=== PATIENT | female | born 1980 | race Caucasian/White ===

== ENCOUNTER 2017-09-03 23:34 | Emergency (ER) | payer OTHER ==
[2017-09-04] MEDS ORDERED: Diltiazem CD CAP* 120 MG PO ONE
[2017-09-04 00:30] LABS: ABS Basophils 0.1 10^3/ul (0-0.2); ABS Eosinophils 0.1 10^3/ul (0-0.6); ABS Lymphocytes 1.9 10^3/ul (1.0-4.8); ABS Monocytes 0.4 10^3/ul (0-0.8); ABS Neutrophils 5.7 10^3/ul (1.5-7.7); ABS Nucleated RBC 0 10^3/ul; Eosinophil % 1.2 % (0-6); Hematocrit 40 % (35-47); Hemoglobin 13.8 g/dl (12.0-16.0); Lymphocyte % 23.2 % (25-47); Mean Corpuscular HGB Conc 34 g/dl (31-36); Mean Corpuscular Hemoglobin 31 pg (27-31); Mean Corpuscular Volume 90 fL (80-97); Mean Platelet Volume 8 um3 (7.4-10.4); Nucleated Red Blood Cells % 0; Platelet Count 241 10^3/ul (150-450); Red Blood Count 4.47 10^6/ul (4.0-5.4); Red Cell Distribution Width 14 % (10.5-15); White Blood Count 8.2 10^3/ul (3.5-10.8)
[2017-09-04 00:34] LABS: EGFR Non-African American 62.4 (>60)
[2017-09-04 00:35] LABS: INR 0.79 (0.77-1.02)
[2017-09-04] MEDS ORDERED: Iohexol 350* (CONTRAST) 500 ML MDV IV ONE (01:25)
--- NOTE | 2017-09-04 03:59 | ED ---
Simon Hubbard Jennifer, scribed for Delgado Alonso on 09/03/17 at 2348 . HPI Chest Pain - HPI Summary HPI Summary: The patient is a 36 year old female who presents to the ED with chest pain that began tonight. She has a history of SVT and says she can feel when its coming. She felt it tonight and was told her heart rate went up to 190. She reports a stabbing pain in her sternum, and the pain radiates into her back. She additionally reports feeling dizzy, lightheaded, shaky, and has a migraine. The patient explains that she normally takes Cardiazem, but she hasnt had it in three months because her ex-boyfriend threw it out. - History of Current Complaint Time Seen by Provider: 09/03/17 23:39 Hx Obtained From: Patient Onset/Duration: Started Minutes Ago, Still Present Timing: Constant Initial Severity: Mild Current Severity: Mild Pain Intensity: 2 Pain Scale Used: 0-10 Numeric Chest Pain Location: Mid Sternal Chest Pain Radiates: Yes Chest Pain Radiates To:: Back Character: Sharp/Stabbing Aggravating Factor(s): Nothing Alleviating Factor(s): Nothing Associated Signs and Symptoms: Positive: Other: - Dizzy, lightheaded, shaky, migraine Related History: Similar Episode/Dx as: - SVT - Allergy/Home Medications Allergies/Adverse Reactions: Allergies Allergy/AdvReac Type Severity Reaction Status Date / Time aspirin Allergy Anaphylatic Verified 09/03/17 23:40 Shock Penicillins Allergy Anaphylatic Verified 09/04/17 00:10 Shock PMH/Surg Hx/FS Hx/Imm Hx Endocrine/Hematology History: Denies: Hx Diabetes Cardiovascular History: Denies: Hx Hypertension, Hx Myocardial Infarction Infectious Disease History: No Infectious Disease History: Denies: Traveled Outside the [place] in Last 30 Days - Family History Known Family History: Positive: Diabetes - Grandmother - Social History Smoking Status (MU): Smoker, Current Status Unknown Review of Systems Positive: Chest Pain Neurological: Other - Dizzy, lightheaded, shaky Positive: Headache - Migraine All Other Systems Reviewed And Are Negative: Yes Physical Exam - Summary Physical Exam Summary: Appearance: Well appearing, no pain distress Skin: warm, dry, reflects adequate perfusion Head/face: normal Eyes: EOMI, JOSE A ENT: normal Neck: supple, non-tender Respiratory: CTA, breath sounds present Cardiovascular: tachycardic, regular rhythm, pulses symmetrical Abdomen: non-tender, soft Bowel: present Musculoskeletal: normal, strength/ROM intact Neuro: normal, sensory motor intact, A&Ox3 Triage Information Reviewed: Yes Vital Signs On Initial Exam: Initial Vitals Temp Pulse Resp BP Pulse Ox 97.4 F 103 20 140/73 96 09/03/17 23:39 09/03/17 23:39 09/03/17 23:39 09/03/17 23:39 09/03/17 23:39 Vital Signs Reviewed: Yes Diagnostics - Vital Signs Vital Signs Temp Pulse Resp BP Pulse Ox 09/03/17 23:39 97.4 F 103 20 140/73 96 - Laboratory Lab Results: Lab Results 09/04/17 09/04/17 09/04/17 Range/Units 00:05 00:05 00:05 WBC (3.5-10.8) 10^3/ul RBC (4.0-5.4) 10^6/ul Hgb (12.0-16.0) g/dl Hct (35-47) % MCV (80-97) fL MCH (27-31) pg MCHC (31-36) g/dl RDW (10.5-15) % Plt Count (150-450) 10^3/ul MPV (7.4-10.4) um3 Neut % (Auto) (38-83) % Lymph % (Auto) (25-47) % White % (Auto) (0-7) % Eos % (Auto) (0-6) % Baso % (Auto) (0-2) % Absolute Neuts (auto) (1.5-7.7) 10^3/ul Absolute Lymphs (auto) (1.0-4.8) 10^3/ul Absolute Monos (auto) (0-0.8) 10^3/ul Absolute Eos (auto) (0-0.6) 10^3/ul Absolute Basos (auto) (0-0.2) 10^3/ul Absolute Nucleated RBC 10^3/ul Nucleated RBC % INR (Anticoag Therapy) 0.79 (0.77-1.02) APTT 31.4 (26.0-36.3) seconds Sodium 138 (133-145) mmol/L Potassium 3.9 (3.5-5.0) mmol/L Chloride 106 (101-111) mmol/L Carbon Dioxide 25 (22-32) mmol/L Anion Gap 7 (2-11) mmol/L BUN 15 (6-24) mg/dL Creatinine 1.00 H (0.51-0.95) mg/dL Est GFR ( Amer) 80.2 (>60) Est GFR (Non-Af Amer) 62.4 (>60) BUN/Creatinine Ratio 15.0 (8-20) Glucose 100 (70-100) mg/dL Lactic Acid (0.5-2.0) mmol/L Calcium 9.6 (8.6-10.3) mg/dL Total Bilirubin 0.20 (0.2-1.0) mg/dL AST 20 (13-39) U/L ALT 26 (7-52) U/L Alkaline Phosphatase 62 (34-104) U/L Troponin I 0.00 (<0.04) ng/mL B-Natriuretic Peptide 15 ( - 100) pg/mL Total Protein 6.9 (6.4-8.9) g/dL Albumin 4.2 (3.2-5.2) g/dL Globulin 2.7 (2-4) g/dL Albumin/Globulin Ratio 1.6 (1-3) Beta HCG, Quant 1.19 mIU/mL 09/04/17 09/04/17 09/04/17 Range/Units 00:05 00:05 02:51 WBC 8.2 (3.5-10.8) 10^3/ul RBC 4.47 (4.0-5.4) 10^6/ul Hgb 13.8 (12.0-16.0) g/dl Hct 40 (35-47) % MCV 90 (80-97) fL MCH 31 (27-31) pg MCHC 34 (31-36) g/dl RDW 14 (10.5-15) % Plt Count 241 (150-450) 10^3/ul MPV 8 (7.4-10.4) um3 Neut % (Auto) 69.5 (38-83) % Lymph % (Auto) 23.2 L (25-47) % White % (Auto) 5.4 (0-7) % Eos % (Auto) 1.2 (0-6) % Baso % (Auto) 0.7 (0-2) % Absolute Neuts (auto) 5.7 (1.5-7.7) 10^3/ul Absolute Lymphs (auto) 1.9 (1.0-4.8) 10^3/ul Absolute Monos (auto) 0.4 (0-0.8) 10^3/ul Absolute Eos (auto) 0.1 (0-0.6) 10^3/ul Absolute Basos (auto) 0.1 (0-0.2) 10^3/ul Absolute Nucleated RBC 0 10^3/ul Nucleated RBC % 0 INR (Anticoag Therapy) (0.77-1.02) APTT (26.0-36.3) seconds Sodium (133-145) mmol/L Potassium (3.5-5.0) mmol/L Chloride (101-111) mmol/L Carbon Dioxide (22-32) mmol/L Anion Gap (2-11) mmol/L BUN (6-24) mg/dL Creatinine (0.51-0.95) mg/dL Est GFR ( Amer) (>60) Est GFR (Non-Af Amer) (>60) BUN/Creatinine Ratio (8-20) Glucose (70-100) mg/dL Lactic Acid 1.3 (0.5-2.0) mmol/L Calcium (8.6-10.3) mg/dL Total Bilirubin (0.2-1.0) mg/dL AST (13-39) U/L ALT (7-52) U/L Alkaline Phosphatase (34-104) U/L Troponin I 0.00 (<0.04) ng/mL B-Natriuretic Peptide ( - 100) pg/mL Total Protein (6.4-8.9) g/dL Albumin (3.2-5.2) g/dL Globulin (2-4) g/dL Albumin/Globulin Ratio (1-3) Beta HCG, Quant mIU/mL 09/04/17 Range/Units 03:15 WBC (3.5-10.8) 10^3/ul RBC (4.0-5.4) 10^6/ul Hgb (12.0-16.0) g/dl Hct (35-47) % MCV (80-97) fL MCH (27-31) pg MCHC (31-36) g/dl RDW (10.5-15) % Plt Count (150-450) 10^3/ul MPV (7.4-10.4) um3 Neut % (Auto) (38-83) % Lymph % (Auto) (25-47) % White % (Auto) (0-7) % Eos % (Auto) (0-6) % Baso % (Auto) (0-2) % Absolute Neuts (auto) (1.5-7.7) 10^3/ul Absolute Lymphs (auto) (1.0-4.8) 10^3/ul Absolute Monos (auto) (0-0.8) 10^3/ul Absolute Eos (auto) (0-0.6) 10^3/ul Absolute Basos (auto) (0-0.2) 10^3/ul Absolute Nucleated RBC 10^3/ul Nucleated RBC % INR (Anticoag Therapy) (0.77-1.02) APTT (26.0-36.3) seconds Sodium (133-145) mmol/L Potassium (3.5-5.0) mmol/L Chloride (101-111) mmol/L Carbon Dioxide (22-32) mmol/L Anion Gap (2-11) mmol/L BUN (6-24) mg/dL Creatinine (0.51-0.95) mg/dL Est GFR ( Amer) (>60) Est GFR (Non-Af Amer) (>60) BUN/Creatinine Ratio (8-20) Glucose (70-100) mg/dL Lactic Acid (0.5-2.0) mmol/L Calcium (8.6-10.3) mg/dL Total Bilirubin (0.2-1.0) mg/dL AST (13-39) U/L ALT (7-52) U/L Alkaline Phosphatase (34-104) U/L Troponin I 0.00 (<0.04) ng/mL B-Natriuretic Peptide ( - 100) pg/mL Total Protein (6.4-8.9) g/dL Albumin (3.2-5.2) g/dL Globulin (2-4) g/dL Albumin/Globulin Ratio (1-3) Beta HCG, Quant mIU/mL Result Diagrams: 09/04/17 00:05 09/04/17 00:05 Lab Statement: Any lab studies that have been ordered have been reviewed, and results considered in the medical decision making process. - Radiology CXR Xray Interpretation: No Acute Changes - Normal Radiology Interpretation Completed By: ED Physician - CT CTA Chest/Abd/Pel CT Interpretation: No Acute Changes - No acute pathology. Dr. Alonso has reviewed this report. CT Interpretation Completed By: Radiologist - EKG 23:32 Cardiac Rate: Tachycardia EKG Rhythm: Sinus Tachycardia - 106 BPM EKG Interpretation: no acute changes Chest Pain Course/Dx - Course Assessment/Plan: The patient is a 36 year old female who presents to the ED with chest pain that began tonight. She has a history of SVT and says she can feel when its coming. Bloodwork was obtained. CXR was obtained. EKG showed sinus tachycardia. The patient is diagnosed with Palpitations and Atypical chest pain. She is instructed to f/u with PCP in three days. - Chest Pain Differential Diagnosis/HQI/PQRI: Acute OK, CHF, Chest Wall, Lower Respiratory Infection, Pulmonary Embolism - Diagnoses Provider Diagnoses: Palpitations, Atypical chest pain Discharge - Discharge Plan Condition: Stable Disposition: HOME Prescriptions: dilTIAZem HCl [Cardizem LA] 120 mg PO ONCE #30 tab.er.24h Patient Education Materials: Chest Pain (ED), Heart Palpitations (ED) Forms: *Work Release Referrals: [facility] [place] PH[facility]IAN REFERRAL [Outside] - 3 Days Additional Instructions: Follow up with your primary care physician in three days. Return to the emergency department for any new or worsening symptoms. The documentation as recorded by the Simon moran Jennifer accurately reflects the service I personally performed and the decisions made by , Delgado Alonso.
[2017-09-04 04:02] VITALS: BP 115/62
--- NOTE | 2017-09-04 08:37 | RAD ---
Indication: Chest pain. Single frontal view of the chest performed at 2355 hours was reviewed. No prior study is available for comparison. No mediastinal shift is noted. Heart is of normal size and configuration. Lung landa appear clear. IMPRESSION: NO ACTIVE CARDIOPULMONARY DISEASE IS NOTED.
--- NOTE | 2017-09-04 09:10 | RAD ---
Indication: Aortic dissection, chest pain. Contrast: Administered 100.1 ml of OMNIPAQUE 350 mg/ml CTA of the chest, abdomen and pelvis was performed after IV contrast administration. No oral contrast was given. The thoracic aorta demonstrates no evidence of aortic dissection. No aneurysmal dilatation is noted. The pulmonary arteries are unremarkable with no definite filling defects. Small 3 to 5 mm pretracheal and AP window lymph nodes are noted. No hilar adenopathy is noted. The trachea and major bronchi appear patent. Lung landa demonstrate no pleural fluid, pneumonia or pneumothorax. The thoracic spinal structures demonstrate no evidence of compression fracture. The abdominal aorta demonstrates no evidence of aneurysmal dilatation or dissection. The origins of the celiac axis, left and right renal arteries as well as the superior mesenteric artery are patent. Common iliac and external iliac arteries are grossly unremarkable. The liver is normal in size. It is diffusely decreased in density consistent with hepatic steatosis. Areas of focal fatty sparing are noted in the medial segment of the left lobe of liver and around the gallbladder fossa. The gallbladder is contracted. The spleen is normal in size. No adrenal lesions are noted. The kidneys demonstrate symmetric nephrograms without focal lesions. No retroperitoneal lymphadenopathy is noted. No dilated loops of bowel are noted. Scattered diverticula are noted in the colon. No hernias are noted. The patient status post hysterectomy. The visualized bony structures in the abdomen and pelvis demonstrates no fracture. Lumbar spine is grossly unremarkable. IMPRESSION: No evidence of aortic dissection or aneurysmal dilatation of the thoracic or abdominal aorta. No obvious pulmonary embolus is noted. There is hepatic steatosis. No bowel obstruction is noted.
== END 2017-09-04 04:08 | disposition home or self-care (01) ==
LOC: ED 23:34
DX: R00.2 Palpitations (principal); R07.89 Other chest pain; R42 Dizziness and giddiness; G43.909 Migraine, unspecified, not intractable, without status migrainosus; I47.1 Supraventricular tachycardia; Z72.0 Tobacco use
CPT/HCPCS: 36415; 71045; 71275; 74174; 80053; 83605; 83880; 84484; 84702; 85025; 85610; 85730; 93005; 99283; A9270-GY; Q9967

== ENCOUNTER 2018-03-15 14:56 | Emergency (ER) | payer OTHER ==
--- NOTE | 2018-03-15 16:16 | ED ---
Upper Extremity Pain - HPI Summary HPI Summary: Patient complains of right arm pain and numbness and tingling radiating down to hand starting this morning. Denies trauma, heavy lifting, fever, loss of function. - History of Current Complaint Chief Complaint: EDExtremityUpper Stated Complaint: RT ARM PAIN Time Seen by Provider: 03/15/18 15:58 Hx Obtained From: Patient Mechanism Of Injury: Unknown Onset/Duration: Started Hours Ago Timing: Constant Severity Initially: Mild Severity Currently: Mild Aggravating Factor(s): Movement Alleviating Factor(s): Rest Associated Signs & Symptoms: Positive: Negative - Allergies/Home Medications Allergies/Adverse Reactions: Allergies Allergy/AdvReac Type Severity Reaction Status Date / Time aspirin Allergy Anaphylatic Verified 03/15/18 15:10 Shock Penicillins Allergy Anaphylatic Verified 03/15/18 15:10 Shock PMH/Surg Hx/FS Hx/Imm Hx Endocrine/Hematology History: Denies: Hx Anticoagulant Therapy, Hx Diabetes Cardiovascular History: Denies: Hx Hypertension, Hx Myocardial Infarction History: Denies: Hx Dialysis, Hx Renal Disease Neurological History: Denies: Hx CVA - Surgical History Surgery Procedure, Year, and Place: 2 HEART SX Infectious Disease History: No Infectious Disease History: Denies: Traveled Outside the [place] in Last 30 Days - Family History Known Family History: Positive: Diabetes - Grandmother - Social History Alcohol Use: None Substance Use Type: Reports: None Smoking Status (MU): Heavy Every Day Tobacco Smoker Review of Systems Constitutional: Negative Eyes: Negative ENT: Negative Cardiovascular: Negative Respiratory: Negative Gastrointestinal: Negative Genitourinary: Negative Musculoskeletal: Other Skin: Negative Positive: Paresthesia Psychological: Normal All Other Systems Reviewed And Are Negative: Yes Physical Exam - Summary Physical Exam Summary: No erythema, ecchymosis, wound, extra warmth, swelling or deformity noted to right upper extremity. Patient has full range of motion of right fingers, right wrist, right elbow, right shoulder without indication of pain. Tenderness to palpation of medial right upper arm. 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 Triage Information Reviewed: Yes Vital Signs On Initial Exam: Initial Vitals Temp Pulse Resp BP Pulse Ox 97.9 F 100 16 136/80 98 03/15/18 15:05 03/15/18 15:05 03/15/18 15:05 03/15/18 15:05 03/15/18 15:05 Vital Signs Reviewed: Yes Appearance: Positive: Well-Appearing Skin: Positive: Warm Head/Face: Positive: Normal Head/Face Inspection Eyes: Positive: Normal Neck: Positive: Supple Respiratory/Lung Sounds: Positive: Clear to Auscultation Cardiovascular: Positive: Normal Abdomen Description: Positive: Nontender Musculoskeletal: Positive: Normal Neurological: Positive: Normal Psychiatric: Positive: Normal AVPU Assessment: Alert - Mobile Coma Scale Best Eye Response: 4 - Spontaneous Best Motor Response: 6 - Obeys Commands Best Verbal Response: 5 - Oriented Coma Scale Total: 15 Diagnostics - Vital Signs Vital Signs Temp Pulse Resp BP Pulse Ox 03/15/18 15:05 97.9 F 100 16 136/80 98 - Laboratory Lab Statement: Any lab studies that have been ordered have been reviewed, and results considered in the medical decision making process. Course/Dx - Course Course Of Treatment: Patient complains of right arm pain and numbness and tingling radiating down to hand starting this morning. Denies trauma, heavy lifting, fever, loss of function. Physical exam:No erythema, ecchymosis, wound , extra warmth, swelling or deformity noted to right upper extremity. Patient has full range of motion of right fingers, right wrist, right elbow, right shoulder without indication of pain. Tenderness to palpation of medial right upper arm. 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 Vital signs normal. Follow-up with orthopedics of systems persist - Diagnoses Provider Diagnoses: Peripheral neuropathy Discharge - Sign-Out/Discharge Documenting (check all that apply): Patient Departure - Discharge Plan Condition: Stable Disposition: HOME Patient Education Materials: Peripheral Neuropathy (ED) Forms: *Work Release Referrals: No Primary Care Phys,NOPCP [Primary Care Provider] - Rivas Cardona MD [Medical Doctor] - Additional Instructions: Follow-up with orthopedics Dr. Rossi if symptoms persist. Return to the ED for any new or worsening symptoms - Billing Disposition and Condition Condition: STABLE Disposition: Home
[2018-03-15 16:36] VITALS: BP 121/78
== END 2018-03-15 16:35 | disposition home or self-care (01) ==
LOC: ED 14:56
DX: G62.9 Polyneuropathy, unspecified (principal); F17.210 Nicotine dependence, cigarettes, uncomplicated; Z88.0 Allergy status to penicillin
CPT/HCPCS: 99281

== ENCOUNTER → 2018-03-29 17:29 | Emergency (ER) | payer OTHER ==
[2018-03-29 18:29] LABS: ABS Basophils 0.1 10^3/ul (0-0.2); ABS Eosinophils 0.1 10^3/ul (0-0.6); ABS Lymphocytes 1.5 10^3/ul (1.0-4.8); ABS Monocytes 0.6 10^3/ul (0-0.8); ABS Neutrophils 5.7 10^3/ul (1.5-7.7); ABS Nucleated RBC 0 10^3/ul; Eosinophil % 1.5 % (0-6); Hematocrit 41 % (35-47); Hemoglobin 14.1 g/dl (12.0-16.0); Lymphocyte % 19.2 % (25-47); Mean Corpuscular HGB Conc 34 g/dl (31-36); Mean Corpuscular Hemoglobin 31 pg (27-31); Mean Corpuscular Volume 91 fL (80-97); Mean Platelet Volume 7.3 um3 (7.4-10.4); Nucleated Red Blood Cells % 0; Platelet Count 243 10^3/ul (150-450); Red Blood Count 4.52 10^6/ul (4.00-5.40); Red Cell Distribution Width 13 % (10.5-15)
[2018-03-29 18:41] LABS: INR 0.85 (0.77-1.02)
[2018-03-29 18:47] LABS: EGFR Non-African American 73.8 (>60)
--- NOTE | 2018-03-29 19:02 | ED ---
Palpitations / Dysrhythmia - HPI Summary HPI Summary: This patient is a 37 year old F presenting to [facility] accompanied by her fiance with a chief complaint of palpitations since 1700. Pt endorses she experienced pain that started in her back, then radiated to her chest causing pain and tension. Pt endorses fatigue and a migraine (secondary to EMS tx NTG) currently. She states that she was driving and became dizzy and felt palpitations, so she pressed the button on her heart monitor (PMHx palpitations ) and measured 140 BPM, so she pulled over, and police were nearby and called EMS. Per EMS, pt was in SVT, and was given adenosine, which lowered her heart rate from 160 to 120, but only temporarily. She notes that currently her sx are better than at onset. Rx Cardizem, denies Rx blood thinners. Pt denies hormonal therapy, drug use, and cough. Pt denies PMHx thyroidism, heavy vaginal bleeding , DVT, and PE. She states she smokes PPD. FHx CAD: father at age 50, 1 massive PR, 6 minor MIs. - History of Current Complaint Chief Complaint: EDChestPainROMI Time Seen by Provider: 03/29/18 18:05 Hx Obtained From: Patient Onset/Duration: Sudden Onset, Lasting Minutes, Still Present Timing: Constant Severity Initially: Moderate Severity Currently: Mild Character: Fast Aggravating: Nothing Alleviating: Medication - adenosine Associated Signs & Symptoms: Dizzy, Chest Pain Related History: Similar Episode/Dx as - PMHx palpitations - Allergy/Home Medications Allergies/Adverse Reactions: Allergies Allergy/AdvReac Type Severity Reaction Status Date / Time aspirin Allergy Anaphylatic Verified 03/15/18 15:10 Shock Penicillins Allergy Anaphylatic Verified 03/15/18 15:10 Shock Home Medications: Home Medications Diltiazem CD CAP* [Cardizem CD CAP*] 120 mg PO DAILY 03/29/18 [History Confirmed 03/29/18] PMH/Surg Hx/FS Hx/Imm Hx Endocrine/Hematology History: Denies: Hx Anticoagulant Therapy, Hx Diabetes Cardiovascular History: Reports: Hx Supraventricular Ventricular Tachycardia Denies: Hx Hypertension, Hx Myocardial Infarction History: Denies: Hx Dialysis, Hx Renal Disease Neurological History: Denies: Hx CVA - Surgical History Surgery Procedure, Year, and Place: 2 HEART SX Infectious Disease History: No Infectious Disease History: Denies: Traveled Outside the [place] in Last 30 Days - Family History Known Family History: Positive: Diabetes - Grandmother - Social History Alcohol Use: None Substance Use Type: Reports: None Smoking Status (MU): Heavy Every Day Tobacco Smoker Review of Systems Positive: Fatigue Positive: Palpitations, Chest Pain Negative: Cough Positive: no symptoms reported All Other Systems Reviewed And Are Negative: Yes Physical Exam - Summary Physical Exam Summary: GENERAL: Patient is a well-developed and nourished F who is lying comfortable in the stretcher. Patient is not in any acute respiratory distress. HEAD AND FACE: Normocephalic EYES: PERRLA, EOMI x 2. EARS: Hearing grossly intact. MOUTH: Oropharynx within normal limits. NECK: Supple, trachea is midline, no adenopathy, no JVD, no carotid bruit. CHEST: Symmetric, no tenderness at palpation LUNGS: Clear to auscultation bilaterally. No wheezing or crackles. CVS: Mildly tachycardic, S1 and S2 present, no murmurs or gallops appreciated. ABDOMEN: Soft, non-tender. Bowel sounds are normal. No abdominal abnormal pulsations. EXTREMITIES: Full ROM in all major joints, no edema, no cyanosis or clubbing. NEURO: Alert and oriented x 3. No acute neurological deficits. Speech is normal and follows commands. SKIN: Dry and warm Triage Information Reviewed: Yes Vital Signs On Initial Exam: Initial Vitals Pulse Resp BP Pulse Ox 122 26 139/84 98 03/29/18 17:28 18 17:28 18 17:28 03/29/18 17:28 Vital Signs Reviewed: Yes Diagnostics - Vital Signs Vital Signs Temp Pulse Resp BP Pulse Ox 03/29/18 18:28 107 20 115/89 97 03/29/18 18:00 126 20 98 03/29/18 17:58 146 25 141/89 99 03/29/18 17:35 98.4 F 128 28 139/84 97 03/29/18 17:34 124 32 97 03/29/18 17:28 122 26 139/84 98 - Laboratory Lab Results: Lab Results 03/29/18 03/29/18 03/29/18 Range/Units 18:23 18:23 18:23 WBC 8.0 (3.5-10.8) 10^3/ul RBC 4.52 (4.00-5.40) 10^6/ul Hgb 14.1 (12.0-16.0) g/dl Hct 41 (35-47) % MCV 91 (80-97) fL MCH 31 (27-31) pg MCHC 34 (31-36) g/dl RDW 13 (10.5-15) % Plt Count 243 (150-450) 10^3/ul MPV 7.3 L (7.4-10.4) um3 Neut % (Auto) 71.0 (38-83) % Lymph % (Auto) 19.2 L (25-47) % [place] % (Auto) 7.0 (0-7) % Eos % (Auto) 1.5 (0-6) % Baso % (Auto) 1.3 (0-2) % Absolute Neuts (auto) 5.7 (1.5-7.7) 10^3/ul Absolute Lymphs (auto) 1.5 (1.0-4.8) 10^3/ul Absolute Monos (auto) 0.6 (0-0.8) 10^3/ul Absolute Eos (auto) 0.1 (0-0.6) 10^3/ul Absolute Basos (auto) 0.1 (0-0.2) 10^3/ul Absolute Nucleated RBC 0 10^3/ul Nucleated RBC % 0 INR (Anticoag Therapy) 0.85 (0.77-1.02) APTT 29.7 (26.0-36.3) seconds D-Dimer, Quantitative 207 (Less Than 230) ng/mL Sodium 140 (135-145) mmol/L Potassium 3.5 (3.5-5.0) mmol/L Chloride 110 (101-111) mmol/L Carbon Dioxide 25 (22-32) mmol/L Anion Gap 5 (2-11) mmol/L BUN 16 (6-24) mg/dL Creatinine 0.86 (0.51-0.95) mg/dL Est GFR ( Amer) 89.4 (>60) Est GFR (Non-Af Amer) 73.8 (>60) BUN/Creatinine Ratio 18.6 (8-20) Glucose 108 H (70-100) mg/dL Lactic Acid (0.5-2.0) mmol/L Calcium 8.9 (8.6-10.3) mg/dL Magnesium 2.0 (1.9-2.7) mg/dL Total Bilirubin 0.20 (0.2-1.0) mg/dL AST 17 (13-39) U/L ALT 20 (7-52) U/L Alkaline Phosphatase 58 (34-104) U/L Troponin I 0.00 (<0.04) ng/mL Total Protein 6.5 (6.4-8.9) g/dL Albumin 4.0 (3.2-5.2) g/dL Globulin 2.5 (2-4) g/dL Albumin/Globulin Ratio 1.6 (1-3) TSH Pending Beta HCG, Quant 1.34 mIU/mL 03/29/18 Range/Units 18:23 WBC (3.5-10.8) 10^3/ul RBC (4.00-5.40) 10^6/ul Hgb (12.0-16.0) g/dl Hct (35-47) % MCV (80-97) fL MCH (27-31) pg MCHC (31-36) g/dl RDW (10.5-15) % Plt Count (150-450) 10^3/ul MPV (7.4-10.4) um3 Neut % (Auto) (38-83) % Lymph % (Auto) (25-47) % [place] % (Auto) (0-7) % Eos % (Auto) (0-6) % Baso % (Auto) (0-2) % Absolute Neuts (auto) (1.5-7.7) 10^3/ul Absolute Lymphs (auto) (1.0-4.8) 10^3/ul Absolute Monos (auto) (0-0.8) 10^3/ul Absolute Eos (auto) (0-0.6) 10^3/ul Absolute Basos (auto) (0-0.2) 10^3/ul Absolute Nucleated RBC 10^3/ul Nucleated RBC % INR (Anticoag Therapy) (0.77-1.02) APTT (26.0-36.3) seconds D-Dimer, Quantitative (Less Than 230) ng/mL Sodium (135-145) mmol/L Potassium (3.5-5.0) mmol/L Chloride (101-111) mmol/L Carbon Dioxide (22-32) mmol/L Anion Gap (2-11) mmol/L BUN (6-24) mg/dL Creatinine (0.51-0.95) mg/dL Est GFR ( Amer) (>60) Est GFR (Non-Af Amer) (>60) BUN/Creatinine Ratio (8-20) Glucose (70-100) mg/dL Lactic Acid 1.6 (0.5-2.0) mmol/L Calcium (8.6-10.3) mg/dL Magnesium (1.9-2.7) mg/dL Total Bilirubin (0.2-1.0) mg/dL AST (13-39) U/L ALT (7-52) U/L Alkaline Phosphatase (34-104) U/L Troponin I (<0.04) ng/mL Total Protein (6.4-8.9) g/dL Albumin (3.2-5.2) g/dL Globulin (2-4) g/dL Albumin/Globulin Ratio (1-3) TSH Beta HCG, Quant mIU/mL Result Diagrams: 03/29/18 18:23 03/29/18 18:23 Lab Statement: Any lab studies that have been ordered have been reviewed, and results considered in the medical decision making process. - Radiology CXR Xray Interpretation: No Acute Changes Radiology Interpretation Completed By: ED Physician - Normal CXR. Pending official imaging report. - EKG 1824 Cardiac Rate: Tachycardia - 107 EKG Rhythm: Sinus Tachycardia ST Segment: Normal Ectopy: None EKG Interpretation: nl besides tachycardia. Re-Evaluation - Re-Evaluation First Eval Re-Evaluation Time: 20:22 Course/Dx - Course Course Of Treatment: A 37-year-old F presents to the ED with a CC of palpitations since 1700. (+) tachycardia, dizziness, back pain that radiated to front/chest pain and "tension", and migraine. (-) cough, drug use, and hormone therapy. PMHx SVT, EMS administered adenosine [employer], brought rate from 160 to 120. Pt also given NTG, which did not alleviate sx, it only gave her a migraine. An EKG reveals sinus tachycardia at 107 BPM but is otherwise nl. A CXR was (-). Pt's lab results show low lymph % and high glucose, but are otherwise nl. I discussed results with patient and she reports much improvement. She is hemodynamically stable upon discharge. Strict return precautions given and she will otherwise follow up with the referred silk screen printer helper. - Diagnoses Provider Diagnoses: Palpitations Discharge - Sign-Out/Discharge Documenting (check all that apply): Patient Departure - discharge - Discharge Plan Condition: Stable Disposition: HOME Patient Education Materials: Heart Palpitations (ED) Referrals: Monserrat Willson MD [Medical Doctor] - Additional Instructions: Return to the emergency department for any new or worsening symptoms. Follow up with silk screen printer helper Dr. Monserrat Willson in 1-3 days. - Billing Disposition and Condition Condition: STABLE Disposition: Home - Attestation Statements Document Initiated by Scribe: Yes Documenting Scribe: Al Degroot Provider For Whom Julissaibe is Documenting (Include Credential): Dr. Annelise Benson MD Scribe Attestation: I, Al Degroot, scribed for Dr. Annelise Benson MD on 04/01/18 at 0804. Scribe Documentation Reviewed: Yes Provider Attestation: The documentation as recorded by the Al moran accurately reflects the service I personally performed and the decisions made by me, Dr. Annelise Benson MD
[2018-03-29 20:26] LABS: Urine Appearance Clear; Urine Blood Negative (Negative); Urine Color Yellow; Urine Ketones Negative (Negative); Urine Protein Negative (Negative); Urine Specific Gravity 1.014 (1.010-1.030); Urine Urobilinogen Negative (Negative)
[2018-03-29 21:31] VITALS: BP 117/94
--- NOTE | 2018-03-30 07:59 | RAD ---
Indication: Chest pain. Elevated heart rate. Dizziness. Comparison: September 04, 2017 CT. Technique: Upright AP 1843 hours Report: equipment monitor phototypesetting partially obscures the LEFT mid lung zone peripherally. No focal pulmonary lesion, compelling alveolar consolidation, pleural effusion, pneumothorax. The heart, pulmonary vasculature, and mediastinal contours are unremarkable. IMPRESSION: #. No evidence for acute intrathoracic disease. R0
== END | disposition home or self-care (01) ==
LOC: ED 17:29
DX: R00.0 Tachycardia, unspecified (principal); F17.200 Nicotine dependence, unspecified, uncomplicated; Z86.718 Personal history of other venous thrombosis and embolism; Z82.49 Family history of ischemic heart disease and other diseases of the circulatory system; Z88.6 Allergy status to analgesic agent; Z88.0 Allergy status to penicillin
CPT/HCPCS: 36415; 71045; 80053; 81003; 83605; 83735; 84443; 84484; 84702; 85025; 85379; 85610; 85730; 93005; 99282